=== PATIENT | male | born 1980 | race Caucasian/White ===

== ENCOUNTER 2018-11-05 13:50 | Emergency (ER) | payer MEDICAID ==
[~2018-11-05] VITALS: Ht 177.8 cm; Wt 112.3 kg
[2018-11-05 14:02] VITALS: BP 130/90
[2018-11-05] MEDS ORDERED: KETOROLAC 30 MG/1 ML ONE (14:44)
--- NOTE | 2018-11-05 14:54 | NUR ---
MEDICATED FOR BILATERAL FOOT PAIN
[2018-11-05] MEDS ORDERED: KETOROLAC 30 MG/1 ML IM ONE (15:00)
== END 2018-11-05 15:55 | disposition home or self-care (01) ==
LOC: ED 15:30
DX: M10.072 Idiopathic gout, left ankle and foot (principal); M10.071 Idiopathic gout, right ankle and foot; K08.89 Other specified disorders of teeth and supporting structures
CPT/HCPCS: 96372; 99283; J1885; J7512

== ENCOUNTER 2018-11-09 07:31 | Emergency (ER) | payer MEDICAID ==
[~2018-11-09] VITALS: Ht 177.8 cm; Wt 113.2 kg
[2018-11-09 07:34] VITALS: BP 123/84
[2018-11-09] MEDS ORDERED: KETOROLAC 30 MG/1 ML IM ONE (08:00)
[2018-11-09] MEDS ORDERED: COLCHICINE 0.6 MG CAPSULE PO ONE (08:00)
[2018-11-09] MEDS ORDERED: KETOROLAC 60 MG/2 ML ONE (08:17)
[2018-11-09] MEDS ORDERED: COLCHICINE 0.6 MG CAPSULE ONE (08:18)
== END 2018-11-09 09:02 | disposition home or self-care (01) ==
LOC: ED 08:01
DX: M10.071 Idiopathic gout, right ankle and foot (principal); R05 Cough
CPT/HCPCS: 96372; 99283; J1885

== ENCOUNTER 2018-12-11 15:29 | Emergency (ER) | payer MEDICAID ==
[~2018-12-11] VITALS: Ht 177.8 cm; Wt 110.0 kg
[2018-12-11 17:02] VITALS: BP 125/86
== END 2018-12-11 17:14 | disposition home or self-care (01) ==
LOC: ED 16:37
DX: F10.229 Alcohol dependence with intoxication, unspecified (principal); Y90.0 Blood alcohol level of less than 20 mg/100 ml; F17.200 Nicotine dependence, unspecified, uncomplicated
CPT/HCPCS: 36415; 80053; 80307; 85025; 93005; 96365; 96375; 96376; 99284; J2060; J3411; J7030

== ENCOUNTER 2019-05-23 08:23 | Emergency (ER) | payer MEDICAID, OTHER ==
[~2019-05-23] VITALS: Ht 177.8 cm; Wt 109.3 kg
[2019-05-23 08:30] VITALS: BP 139/87
--- NOTE | 2019-05-23 08:39 | NUR ---
PT C/O RIGHT FOOT PAIN FOR A FEW DAYS THAT HE BELIEVES IS A GOUT FLAIR UP. ADDITIONALLY EXPERIENCING DENTAL PAIN.
[2019-05-23] MEDS ORDERED: KETOROLAC 30 MG/1 ML ONE (08:56)
[2019-05-23] MEDS ORDERED: HYDROcodone/APAP 5/325 TABLET ONE (08:56)
[2019-05-23] MEDS ORDERED: HYDROcodone/APAP 5/325 TABLET PO ONE (09:00)
[2019-05-23] MEDS ORDERED: KETOROLAC 30 MG/1 ML IM ONE (09:00)
--- NOTE | 2019-05-23 09:20 | NUR ---
RPT TO KRYSTLE DYER
--- NOTE | 2019-05-23 09:41 | NUR ---
Patient/Caregiver given discharge instructions and they have confirmed that they understand the instructions. Patient ambulatory with steady gait.
== END 2019-05-23 10:07 ==
LOC: ED 10:01
DX: M25.571 Pain in right ankle and joints of right foot (principal); K08.89 Other specified disorders of teeth and supporting structures; M19.90 Unspecified osteoarthritis, unspecified site; M10.9 Gout, unspecified
CPT/HCPCS: 96372; 99283; J1885

== ENCOUNTER 2019-06-24 18:14 | Emergency (ER) | payer MEDICAID ==
[~2019-06-24] VITALS: Ht 177.8 cm; Wt 107.8 kg
[2019-06-24 18:53] VITALS: BP 130/83
--- NOTE | 2019-06-24 19:24 | NUR ---
PT AMBULATORY FROM LOBBY TO ROOM 10
[2019-06-24] MEDS ORDERED: COLCHICINE 0.6 MG CAPSULE PO ONE (19:30)
[2019-06-24] MEDS ORDERED: KETOROLAC 30 MG/1 ML IM ONE (19:30)
[2019-06-24] MEDS ORDERED: KETOROLAC 30 MG/1 ML ONE (19:39)
[2019-06-24] MEDS ORDERED: COLCHICINE 0.6 MG CAPSULE ONE (19:40)
== END 2019-06-24 19:54 ==
LOC: ED 19:45
DX: M1A.0710 Idiopathic chronic gout, right ankle and foot, without tophus (tophi) (principal)
CPT/HCPCS: 96372; 99283; J1885

== ENCOUNTER 2019-07-09 06:15 | Emergency (ER) | payer MEDICAID ==
[~2019-07-09] VITALS: Ht 177.8 cm; Wt 107.8 kg
--- NOTE | 2019-07-09 06:30 | NUR ---
C/O GOUT FLARE UP ON LEFT FOOT AND LEFT KNEE. PLACED VITALS SIGNS MONITORS, SAFETY PRECAUTIONS IMPLEMENTED, CALL LIGHT WITHIN REACH. ERP AT BEDSIDE FOR EVAL.
[2019-07-09] MEDS ORDERED: KETOROLAC 30 MG/1 ML ONE (06:57)
[2019-07-09] MEDS ORDERED: KETOROLAC 30 MG/1 ML IM ONE (07:00)
--- NOTE | 2019-07-09 07:03 | NUR ---
BEDSIDE REPORT GIVEN TO SOL DYER.
--- NOTE | 2019-07-09 07:05 | NUR ---
RECEIVED REPORT FROM GOMEZ FUENTES. PT SITTING IN BED WATCHING TV, RESPIRATIONS EVEN AND UNLABORED, NO SIGNS OF DISTRESS.
[2019-07-09 07:37] VITALS: BP 113/81
== END 2019-07-09 07:39 | disposition home or self-care (01) ==
LOC: ED 06:46
DX: M17.12 Unilateral primary osteoarthritis, left knee (principal); M19.072 Primary osteoarthritis, left ankle and foot
CPT/HCPCS: 96372; 99283; J1885

== ENCOUNTER 2019-07-15 09:07 | Emergency (ER) | payer MEDICAID ==
[~2019-07-15] VITALS: Ht 177.8 cm; Wt 111.4 kg
[2019-07-15 09:13] VITALS: BP 141/105
[2019-07-15] MEDS ORDERED: COLCHICINE 0.6 MG CAPSULE PO ONE ×2 (10:30→11:30)
[2019-07-15] MEDS ORDERED: HYDROcodone/APAP 5/325 TABLET PO ONE (10:30)
[2019-07-15] MEDS ORDERED: ONDANSETRON ODT 8 MG PO ONE (10:30)
[2019-07-15] MEDS ORDERED: HYDROcodone/APAP 5/325 TABLET ONE (10:46)
[2019-07-15] MEDS ORDERED: ONDANSETRON ODT 4 MG ONE (10:46)
[2019-07-15] MEDS ORDERED: COLCHICINE 0.6 MG CAPSULE ONE ×2 (10:48→11:12)
[2019-07-15] MEDS ORDERED: ONDANSETRON ODT 8 MG ONE (10:52)
--- NOTE | 2019-07-15 10:54 | NUR ---
TASK RN NOTE: PT MEDICATED PER EMAR, TOLERATED WELL. AWAITING FURTHER ORDERS AT THIS TIME.
== END 2019-07-15 11:47 | disposition home or self-care (01) ==
LOC: ED 11:40
DX: M13.0 Polyarthritis, unspecified (principal); M10.9 Gout, unspecified
CPT/HCPCS: 99284; Q0162

== ENCOUNTER 2019-07-29 16:20 | Emergency (ER) | payer MEDICAID ==
[~2019-07-29] VITALS: Ht 180.3 cm; Wt 112.1 kg
[2019-07-29 16:23] VITALS: BP 132/90
--- NOTE | 2019-07-29 16:49 | NUR ---
BREAK NURSE: PT C/O GOUT FLARE UP IN LATERAL RIGHT FOOT. HX GOUT. PT HAS NEW PRESCRIPTION FOR ALLOPURINOL, BUT CANNOT START WITH ACTIVE FLARE UP.
[2019-07-29] MEDS ORDERED: KETOROLAC 60 MG/2 ML ONE (16:58)
[2019-07-29] MEDS ORDERED: KETOROLAC 30 MG/1 ML IM ONE (17:00)
--- NOTE | 2019-07-29 17:02 | NUR ---
MEDS ADMIN PER JUN.
== END 2019-07-29 18:06 | disposition home or self-care (01) ==
LOC: ED 16:47
DX: M79.671 Pain in right foot (principal); M10.9 Gout, unspecified; F17.200 Nicotine dependence, unspecified, uncomplicated
CPT/HCPCS: 96372; 99283; J1885

== ENCOUNTER 2019-09-12 10:02 | Inpatient (IN) | payer MEDICAID ==
[~2019-09-12] VITALS: Ht 180.3 cm; Wt 106.1 kg
--- NOTE | 2019-09-12 10:17 | NUR ---
PT BIB [facility] C/O "FLU LIKE SYMTPOMS" X A FEW DAYS AND ETOH WITHDRAWAL. PT C/O COUGHING AND A "SLIGHT SORE THROAT". LAST DRINK APPROX 3 HOURS AGO. PT STATES "I'M DON'T KNOW HOW MUCH I DRINK". PT SLIGHTLY SHAKY, BUT STEADY UPON AMBULATION TO RESTROOM. PT DENIES HX OF SZ'S W/ETOH WITHDRAWAL IN THE PAST. PT AO X 4. SKIN PWD. RESP EVEN AND UNLABORED. FS 107.
[2019-09-12] MEDS ORDERED: SODIUM CHLORIDE 0.9% 1,000ML IVBOLUS ONE (10:30)
[2019-09-12] MEDS ORDERED: LORazepam 2 MG/ML, 1ML IVPush ONE ×3 (10:30→12:30)
[2019-09-12] MEDS ORDERED: MAALOX/HYOSCYAMINE/LIDOCAINE 45 ML BTL PO ONE (10:30)
[2019-09-12] MEDS ORDERED: FAMOTIDINE 20 MG/2 ML IV ONE (10:30)
[2019-09-12] MEDS ORDERED: ONDANSETRON 2MG/ML, 2ML IVPush ONE (10:30)
[2019-09-12] MEDS ORDERED: FAMOTIDINE 20 MG/2 ML ONE (10:32)
[2019-09-12] MEDS ORDERED: LORazepam 2 MG/ML, 1ML ONE ×5 (10:32→15:21)
[2019-09-12] MEDS ORDERED: MAALOX/HYOSCYAMINE/LIDOCAINE 45 ML BTL ONE (10:32)
[2019-09-12] MEDS ORDERED: ONDANSETRON 2MG/ML, 2ML ONE (10:32)
--- NOTE | 2019-09-12 11:06 | NUR ---
PT MEDICATED ORDERED FOR N/V AND WITHDRAWAL. PT AO X 4. SKIN PWD. RESP EVEN AND UNLABORED. NO COUGH NOTED BY RN AT THIS TIME. US AT BEDSIDE. PT AWARE WE ARE WAITING FOR LAB/IMAGING RESULTS. PT ON CONT BP AND O2 MONITORS. CALL LIGHT WITHIN REACH. WILL CONT TO MONITOR PT.
[2019-09-12 11:08] LABS: MICROSCOPIC NOT IND
[2019-09-12 11:33] LABS: INTERNATIONAL NORMALIZED RATIO 1.04 (0.93-1.1)
[2019-09-12 11:34] LABS: ALBUMIN 3.2 g/dL (3.4-5.0); ANION GAP 14 mmol/L (5-15); BASOPHILS # (AUTO) 0.02 x10^3/uL (0-0.1); BASOPHILS % (AUTO) 1 % (0-1); CALCIUM 8.3 mg/dL (8.5-10.1); CHLORIDE 96 mmol/L (98-107); EOSINOPHILS % (AUTO) 0 % (1-7); LYMPHOCYTES # (AUTO) 0.39 x10^3/uL (1-3.4); LYMPHOCYTES % (AUTO) 12 % (22-44); MD NO; MEAN CORPUSCULAR HEMOGLOBIN 33.1 pg (27.5-34.5); MEAN CORPUSCULAR HGB CONC 34.6 g/dL (33.2-36.2); MEAN CORPUSCULAR VOLUME 95.7 fL (81-97); MEAN PLATELET VOLUME 7.7 fL (7.4-10.4); MONOCYTES # (AUTO) 0.25 x10^3/uL (0.2-0.8); MONOCYTES % (AUTO) 8 % (2-9); NEUTROPHILS # (AUTO) 2.56 x10^3/uL (1.8-6.8); NEUTROPHILS % (AUTO) 79 % (42-75); PLATELET COUNT 107 x10^3/uL (130-400); RED BLOOD COUNT 4.44 x10^6/uL (4.38-5.82); RED CELL DISTRIBUTION WIDTH 16.7 % (9.4-14.8)
[2019-09-12 11:39] LABS: CREATININE 0.78 mg/dL (0.7-1.3)
[2019-09-12 11:40] LABS: ALANINE AMINOTRANSFERASE 210 U/L (12-78); ALKALINE PHOSPHATASE 188 U/L (45-117); BILIRUBIN,TOTAL 1.9 mg/dL (0.2-1.0)
[2019-09-12] MEDS ORDERED: THIAMINE 100MG TABLET ONE (11:42)
--- NOTE | 2019-09-12 11:55 | NUR ---
PT REMEDICATED FOR WITHDRAWAL ORDERED. PT CONT TO HAVE SLIGHT TREMOR IN HANDS. PT STEADY UPON AMBULATION TO RESTROOM AND BACK TO [facility]. PT AO X 4. SKIN PWD. RESP EVEN AND UNLABORED. PT REQUESTING FOOD.
[2019-09-12] MEDS ORDERED: THIAMINE 100MG TABLET PO ONE (12:00)
--- NOTE | 2019-09-12 12:40 | NUR ---
PT CURRENTLY RESTING ON [facility] [employer]. PT HAS IMPROVED BUT SLIGHT TREMOR. PT WAS REMEDICATED ORDERED. PT AO X 4. SKIN PWD. RESP EVEN AND UNLABORED. PT STEADY UPON [facility]ULATION TO [facility]. PT PROVIDED WITH BROTH AND CRACKERS WITH OKAY BY JOSEY ARANGO. PT REQUESTING MORE FOOD. WILL ADVANCE DIET TOLERATED PER JOSEY ARANGO. PT ON CONT BP, CARDIAC AND O2 MONITORS. CALL LIGHT WITHIN REACH.
[2019-09-12] MEDS ORDERED: LABETALOL 5MG/ML, 20ML IVPush PRN (13:00)
[2019-09-12] MEDS ORDERED: CHLORDIAZEPOXIDE 25 MG CAPSULE PO PRN (13:00)
[2019-09-12] MEDS ORDERED: hydrALAzine 20 MG/ML, 1ML IVPush PRN (13:00)
[2019-09-12] MEDS ORDERED: PROMETHAZINE 25 MG/ML, 1ML IM PRN (13:00)
[2019-09-12] MEDS ORDERED: LORazepam 2 MG/ML, 1ML IV PRN ×3 (13:00)
[2019-09-12] MEDS ORDERED: LORazepam 1MG TABLET PO PRN (13:00)
[2019-09-12] MEDS ORDERED: NICOTINE 7 MG/24 HR PATCH.TD24 ONE (13:13)
[2019-09-12] MEDS ORDERED: HEPARIN 5,000 UNITS/ML, 1ML ONE (13:13)
[2019-09-12] MEDS: SODIUM CHLORIDE 0.9% 1,000 ML IV SCH ×2 (13:21→20:24)
[2019-09-12] MEDS: HEPARIN 5,000 UNITS/ML, 1ML SQ SCH ×2 (13:22→20:20)
[2019-09-12] MEDS: NICOTINE 7 MG/24 HR PATCH.TD24 TD SCH (13:22)
--- NOTE | 2019-09-12 13:27 | NUR ---
PT TOLERATED PO BROTH AND SALTINES. PT DENIES NAUSEA AT THIS TIME. PT PROVIDED WITH MEAL TRAY. PT IS LESS TREMULOUS AT THIS TIME. STILL SLIGHT TREMOR NOTED IF PT HOLDS OUT HAND. PT AO X 4. SKIN PWD. RESP EVEN AND UNLABORED. CALL LIGHT WITHIN REACH. WILL CONT TO MONITOR PT.
--- NOTE | 2019-09-12 14:43 | NUR ---
Report to GOMEZ Aguilera on Med/Tele. RN concerned about EKG's. Disucssed with JOSEY Marcum previously, per JOSEY Marcum pt has had no ischemic changes between this and previous EKG's. Pt currently resting on gurney. NAD noted. Pt on cont BP, Cardiac and O2 monitors. Call light within reach.
[2019-09-12] MEDS: LORazepam 2 MG/ML, 1ML IV PRN ×2 (15:23→16:14)
[2019-09-12 15:47] VITALS: BP 122/77
[2019-09-12] MEDS: MULTIVITAMIN 1 TABLET PO SCH (16:13)
[2019-09-12] MEDS: FOLIC ACID 1 MG TABLET PO SCH (16:13)
[2019-09-12 18:34] LABS: ANION GAP 10 mmol/L (5-15); CALCIUM 8.1 mg/dL (8.5-10.1); CHLORIDE 103 mmol/L (98-107); CREATININE 1.35 mg/dL (0.7-1.3)
[2019-09-12 18:39] VITALS: BP 131/89
[2019-09-12] MEDS: ACETAMINOPHEN 325 MG TABLET PO PRN (19:05)
[2019-09-12 20:05] VITALS: BP 117/71
[2019-09-12] MEDS: THIAMINE 100MG TABLET PO SCH (20:20)
[2019-09-12 21:10] LABS: ANION GAP 10 mmol/L (5-15); CALCIUM 8.2 mg/dL (8.5-10.1); CHLORIDE 103 mmol/L (98-107)
[2019-09-12 21:11] LABS: CREATININE 1.29 mg/dL (0.7-1.3)
[2019-09-13 01:11] VITALS: BP 111/72
[2019-09-13] MEDS: LORazepam 1MG TABLET PO PRN ×3 (01:12→19:35)
[2019-09-13] MEDS: SODIUM CHLORIDE 0.9% 1,000 ML IV SCH (04:39)
[2019-09-13] MEDS: HEPARIN 5,000 UNITS/ML, 1ML SQ SCH ×3 (04:59→21:01)
[2019-09-13 05:20] LABS: ALBUMIN 2.7 g/dL (3.4-5.0); ANION GAP 7 mmol/L (5-15); CHLORIDE 107 mmol/L (98-107)
[2019-09-13 05:25] LABS: ALANINE AMINOTRANSFERASE 181 U/L (12-78); ALKALINE PHOSPHATASE 153 U/L (45-117); BILIRUBIN,TOTAL 3.7 mg/dL (0.2-1.0); CREATININE 0.93 mg/dL (0.7-1.3); TOTAL PROTEIN 5.8 g/dL (6.4-8.2)
[2019-09-13 05:57] VITALS: BP 136/80
[2019-09-13] MEDS: ACETAMINOPHEN 325 MG TABLET PO PRN (06:08)
[2019-09-13 06:10] LABS: BASOPHILS # (AUTO) 0.01 x10^3/uL (0-0.1); BASOPHILS % (AUTO) 1 % (0-1); EOSINOPHILS # (AUTO) 0.01 x10^3/uL (0-0.4); EOSINOPHILS % (AUTO) 0 % (1-7); LYMPHOCYTES # (AUTO) 0.47 x10^3/uL (1-3.4); LYMPHOCYTES % (AUTO) 19 % (22-44); MD SCAN; MEAN CORPUSCULAR HEMOGLOBIN 31.8 pg (27.5-34.5); MEAN CORPUSCULAR HGB CONC 33.5 g/dL (33.2-36.2); MEAN PLATELET VOLUME 8.4 fL (7.4-10.4); MONOCYTES # (AUTO) 0.23 x10^3/uL (0.2-0.8); MONOCYTES % (AUTO) 10 % (2-9); NEUTROPHILS % (AUTO) 70 % (42-75); PLATELET COUNT 71 x10^3/uL (130-400); RED BLOOD COUNT 3.94 x10^6/uL (4.38-5.82)
[2019-09-13 06:37] VITALS: BP 138/83
[2019-09-13] MEDS: MULTIVITAMIN 1 TABLET PO SCH (08:23)
[2019-09-13] MEDS: FOLIC ACID 1 MG TABLET PO SCH (08:23)
[2019-09-13] MEDS: THIAMINE 100MG TABLET PO SCH ×2 (08:23→21:01)
[2019-09-13] MEDS: NEUTRA PHOS K 250 MG TABLET PO SCH ×3 (09:35→21:01)
[2019-09-13] MEDS: LORazepam 0.5MG TABLET PO PRN (09:50)
[2019-09-13 10:16] LABS: CHLORIDE 108 mmol/L (98-107)
[2019-09-13 10:21] LABS: ANION GAP 8 mmol/L (5-15); CALCIUM 8.7 mg/dL (8.5-10.1); CREATININE 0.93 mg/dL (0.7-1.3)
[2019-09-13 10:32] LABS: TROPONIN I < 0.015 ng/mL (0.000-0.045)
[2019-09-13 13:43] VITALS: BP 124/84
[2019-09-13] MEDS: NICOTINE 7 MG/24 HR PATCH.TD24 TD SCH (13:59)
[2019-09-13] MEDS: POTASSIUM CHLORIDE 20 MEQ TAB.ER.PRT PO SCH (17:08)
[2019-09-13 18:37] VITALS: BP 136/89
[2019-09-13 18:45] LABS: TROPONIN I < 0.015 ng/mL (0.000-0.045)
[2019-09-13 21:18] LABS: TROPONIN I < 0.015 ng/mL (0.000-0.045)
[2019-09-14 00:49] VITALS: BP 107/73
[2019-09-14] MEDS: HEPARIN 5,000 UNITS/ML, 1ML SQ SCH ×3 (04:58→21:03)
[2019-09-14 05:50] LABS: ALANINE AMINOTRANSFERASE 161 U/L (12-78); ALBUMIN 2.7 g/dL (3.4-5.0); ANION GAP 6 mmol/L (5-15); CALCIUM 8.2 mg/dL (8.5-10.1); CHLORIDE 109 mmol/L (98-107); CREATININE 0.74 mg/dL (0.7-1.3)
[2019-09-14 05:51] LABS: MEAN CORPUSCULAR HEMOGLOBIN 32.6 pg (27.5-34.5); MEAN CORPUSCULAR VOLUME 95.9 fL (81-97); MEAN PLATELET VOLUME 9.2 fL (7.4-10.4); PLATELET COUNT 70 x10^3/uL (130-400); RED BLOOD COUNT 3.84 x10^6/uL (4.38-5.82); RED CELL DISTRIBUTION WIDTH 17.4 % (9.4-14.8)
[2019-09-14 05:52] LABS: ALKALINE PHOSPHATASE 153 U/L (45-117); TOTAL PROTEIN 5.9 g/dL (6.4-8.2)
[2019-09-14 06:22] LABS: BASOPHILS # (AUTO) 0.02 x10^3/uL (0-0.1); BASOPHILS % (AUTO) 1 % (0-1); EOSINOPHILS # (AUTO) 0.04 x10^3/uL (0-0.4); EOSINOPHILS % (AUTO) 1 % (1-7); LYMPHOCYTES # (AUTO) 0.62 x10^3/uL (1-3.4); LYMPHOCYTES % (AUTO) 21 % (22-44); MONOCYTES # (AUTO) 0.28 x10^3/uL (0.2-0.8); MONOCYTES % (AUTO) 10 % (2-9); NEUTROPHILS # (AUTO) 1.98 x10^3/uL (1.8-6.8); NEUTROPHILS % (AUTO) 67 % (42-75)
[2019-09-14 06:23] LABS: MD SCAN
[2019-09-14 07:53] VITALS: BP 115/80
[2019-09-14] MEDS: LORazepam 0.5MG TABLET PO PRN ×2 (07:59→18:21)
[2019-09-14] MEDS: POTASSIUM CHLORIDE 20 MEQ TAB.ER.PRT PO SCH ×4 (07:59→21:02)
[2019-09-14] MEDS: NEUTRA PHOS K 250 MG TABLET PO SCH ×3 (07:59→21:02)
[2019-09-14] MEDS: THIAMINE 100MG TABLET PO SCH ×2 (07:59→21:02)
[2019-09-14] MEDS: FOLIC ACID 1 MG TABLET PO SCH (07:59)
[2019-09-14] MEDS: MULTIVITAMIN 1 TABLET PO SCH (07:59)
[2019-09-14] MEDS: NICOTINE 7 MG/24 HR PATCH.TD24 TD SCH (13:55)
[2019-09-14] MEDS: ONDANSETRON 2MG/ML, 2ML IVPush PRN (14:39)
[2019-09-14 14:57] VITALS: BP 121/87
[2019-09-14] MEDS: PANTOPRAZOLE 40MG TABLET PO SCH (15:51)
[2019-09-14 19:00] VITALS: BP 111/82
[2019-09-14] MEDS: LORazepam 1MG TABLET PO PRN (21:02)
[2019-09-15 00:01] VITALS: BP 118/81
[2019-09-15] MEDS: LORazepam 1MG TABLET PO PRN ×4 (00:12→20:47)
[2019-09-15] MEDS: PANTOPRAZOLE 40MG TABLET PO SCH ×2 (05:46→15:52)
[2019-09-15] MEDS: HEPARIN 5,000 UNITS/ML, 1ML SQ SCH ×3 (05:46→20:46)
[2019-09-15 06:05] LABS: MEAN CORPUSCULAR HEMOGLOBIN 33.1 pg (27.5-34.5); MEAN CORPUSCULAR HGB CONC 34.4 g/dL (33.2-36.2); MEAN CORPUSCULAR VOLUME 96.4 fL (81-97); MEAN PLATELET VOLUME 9.4 fL (7.4-10.4); PLATELET COUNT 70 x10^3/uL (130-400); RED BLOOD COUNT 3.67 x10^6/uL (4.38-5.82); RED CELL DISTRIBUTION WIDTH 17.5 % (9.4-14.8)
[2019-09-15 06:12] LABS: ALANINE AMINOTRANSFERASE 147 U/L (12-78); ALBUMIN 2.6 g/dL (3.4-5.0); ANION GAP 6 mmol/L (5-15); CALCIUM 8.5 mg/dL (8.5-10.1); CHLORIDE 108 mmol/L (98-107); CREATININE 0.74 mg/dL (0.7-1.3)
[2019-09-15 06:14] LABS: ALKALINE PHOSPHATASE 157 U/L (45-117); BILIRUBIN,TOTAL 3.8 mg/dL (0.2-1.0)
[2019-09-15 06:43] LABS: BASOPHILS # (AUTO) 0.02 x10^3/uL (0-0.1); BASOPHILS % (AUTO) 1 % (0-1); EOSINOPHILS # (AUTO) 0.05 x10^3/uL (0-0.4); EOSINOPHILS % (AUTO) 2 % (1-7); LYMPHOCYTES # (AUTO) 0.81 x10^3/uL (1-3.4); LYMPHOCYTES % (AUTO) 28 % (22-44); MD SCAN; MONOCYTES % (AUTO) 10 % (2-9); NEUTROPHILS # (AUTO) 1.76 x10^3/uL (1.8-6.8); NEUTROPHILS % (AUTO) 60 % (42-75)
[2019-09-15] MEDS: THIAMINE 100MG TABLET PO SCH ×2 (08:12→20:47)
[2019-09-15] MEDS: POTASSIUM CHLORIDE 20 MEQ TAB.ER.PRT PO SCH ×3 (08:12→20:47)
[2019-09-15] MEDS: NEUTRA PHOS K 250 MG TABLET PO SCH ×3 (08:12→20:47)
[2019-09-15] MEDS: MULTIVITAMIN 1 TABLET PO SCH (08:12)
[2019-09-15] MEDS: LORazepam 0.5MG TABLET PO PRN (08:12)
[2019-09-15] MEDS: FOLIC ACID 1 MG TABLET PO SCH (09:19)
[2019-09-15 10:01] VITALS: BP 110/74
[2019-09-15] MEDS: ONDANSETRON 2MG/ML, 2ML IVPush PRN (12:42)
[2019-09-15] MEDS: NICOTINE 7 MG/24 HR PATCH.TD24 TD SCH (13:19)
[2019-09-15 13:56] VITALS: BP 110/75
[2019-09-15] MEDS ORDERED: LORazepam 2 MG/ML, 1ML IVPush PRN (18:00)
[2019-09-15] MEDS ORDERED: TRAZODONE 50MG TABLET PO PRN (18:00)
[2019-09-15 19:02] VITALS: BP 113/78
[2019-09-16 00:45] VITALS: BP 112/82
[2019-09-16] MEDS ORDERED: ONDANSETRON ODT 4 MG ONE (04:35)
[2019-09-16] MEDS: ONDANSETRON 2MG/ML, 2ML IVPush PRN (04:38)
[2019-09-16] MEDS: HEPARIN 5,000 UNITS/ML, 1ML SQ SCH ×3 (05:09→22:00)
[2019-09-16 05:58] LABS: CALCIUM 8.9 mg/dL (8.5-10.1); CHLORIDE 110 mmol/L (98-107)
[2019-09-16 06:04] LABS: ALANINE AMINOTRANSFERASE 166 U/L (12-78); ALBUMIN 2.8 g/dL (3.4-5.0); ALKALINE PHOSPHATASE 155 U/L (45-117); ANION GAP 8 mmol/L (5-15); BILIRUBIN,TOTAL 2.5 mg/dL (0.2-1.0); CREATININE 0.74 mg/dL (0.7-1.3); TOTAL PROTEIN 6.4 g/dL (6.4-8.2)
[2019-09-16] MEDS: PANTOPRAZOLE 40MG TABLET PO SCH (06:20)
[2019-09-16 06:21] LABS: MEAN CORPUSCULAR HEMOGLOBIN 32.7 pg (27.5-34.5); MEAN CORPUSCULAR HGB CONC 33.7 g/dL (33.2-36.2); MEAN CORPUSCULAR VOLUME 97.2 fL (81-97); PLATELET COUNT 89 x10^3/uL (130-400); RED BLOOD COUNT 3.99 x10^6/uL (4.38-5.82); RED CELL DISTRIBUTION WIDTH 18.1 % (9.4-14.8)
[2019-09-16 06:51] VITALS: BP 114/83
[2019-09-16 07:37] LABS: BASOPHILS # (AUTO) 0.03 x10^3/uL (0-0.1); BASOPHILS % (AUTO) 1 % (0-1); EOSINOPHILS # (AUTO) 0.07 x10^3/uL (0-0.4); EOSINOPHILS % (AUTO) 2 % (1-7); LYMPHOCYTES # (AUTO) 1.08 x10^3/uL (1-3.4); LYMPHOCYTES % (AUTO) 33 % (22-44); MD SCAN; MONOCYTES # (AUTO) 0.37 x10^3/uL (0.2-0.8); MONOCYTES % (AUTO) 11 % (2-9); NEUTROPHILS # (AUTO) 1.76 x10^3/uL (1.8-6.8); NEUTROPHILS % (AUTO) 53 % (42-75)
[2019-09-16] MEDS: FOLIC ACID 1 MG TABLET PO SCH (08:35)
[2019-09-16] MEDS: MULTIVITAMIN 1 TABLET PO SCH (08:35)
[2019-09-16] MEDS: THIAMINE 100MG TABLET PO SCH ×2 (08:35→21:59)
[2019-09-16] MEDS: NEUTRA PHOS K 250 MG TABLET PO SCH ×3 (08:40→21:59)
[2019-09-16] MEDS: LORazepam 1MG TABLET PO PRN ×3 (12:58→22:02)
[2019-09-16] MEDS: NICOTINE 7 MG/24 HR PATCH.TD24 TD SCH (13:49)
[2019-09-16 14:59] VITALS: BP 110/77
[2019-09-16 21:50] VITALS: BP 110/76
[2019-09-17 00:39] VITALS: BP 119/83
[2019-09-17] MEDS: LORazepam 1MG TABLET PO PRN ×6 (02:58→21:07)
[2019-09-17] MEDS: HEPARIN 5,000 UNITS/ML, 1ML SQ SCH (05:46)
[2019-09-17 06:27] VITALS: BP 119/81
[2019-09-17 06:45] LABS: ALANINE AMINOTRANSFERASE 158 U/L (12-78); ALBUMIN 2.8 g/dL (3.4-5.0); ANION GAP 6 mmol/L (5-15); CALCIUM 8.5 mg/dL (8.5-10.1); CHLORIDE 110 mmol/L (98-107)
[2019-09-17 06:48] LABS: ALKALINE PHOSPHATASE 143 U/L (45-117); BILIRUBIN,TOTAL 1.9 mg/dL (0.2-1.0); TOTAL PROTEIN 6.3 g/dL (6.4-8.2)
[2019-09-17] MEDS ORDERED: ONDANSETRON 4 MG TABLET PO ONE (07:30)
[2019-09-17] MEDS ORDERED: ONDANSETRON 4 MG TABLET ONE (07:32)
[2019-09-17 07:41] LABS: MEAN CORPUSCULAR HEMOGLOBIN 33.1 pg (27.5-34.5); MEAN CORPUSCULAR HGB CONC 33.5 g/dL (33.2-36.2); MEAN CORPUSCULAR VOLUME 98.7 fL (81-97); MEAN PLATELET VOLUME 9.4 fL (7.4-10.4); PLATELET COUNT 114 x10^3/uL (130-400); RED BLOOD COUNT 4.08 x10^6/uL (4.38-5.82); RED CELL DISTRIBUTION WIDTH 18.4 % (9.4-14.8)
[2019-09-17] MEDS: NEUTRA PHOS K 250 MG TABLET PO SCH ×3 (07:46→20:19)
[2019-09-17] MEDS: MULTIVITAMIN 1 TABLET PO SCH (07:46)
[2019-09-17] MEDS: FOLIC ACID 1 MG TABLET PO SCH (07:47)
[2019-09-17] MEDS: PANTOPRAZOLE 40MG TABLET PO SCH (07:47)
[2019-09-17] MEDS: THIAMINE 100MG TABLET PO SCH ×2 (07:47→20:19)
[2019-09-17] MEDS: ENOXAPARIN 40 MG/0.4 ML SQ SCH (08:19)
[2019-09-17 08:25] LABS: BASOPHILS # (AUTO) 0.01 x10^3/uL (0-0.1); BASOPHILS % (AUTO) 0 % (0-1); EOSINOPHILS # (AUTO) 0.07 x10^3/uL (0-0.4); EOSINOPHILS % (AUTO) 2 % (1-7); LYMPHOCYTES # (AUTO) 0.81 x10^3/uL (1-3.4); LYMPHOCYTES % (AUTO) 24 % (22-44); MD SCAN; MONOCYTES # (AUTO) 0.48 x10^3/uL (0.2-0.8); MONOCYTES % (AUTO) 14 % (2-9); NEUTROPHILS # (AUTO) 1.98 x10^3/uL (1.8-6.8); NEUTROPHILS % (AUTO) 59 % (42-75)
[2019-09-17] MEDS ORDERED: KETOROLAC 30 MG/1 ML IVPush PRN (10:30)
[2019-09-17] MEDS: COLCHICINE 0.6 MG CAPSULE PO SCH ×2 (11:03→20:19)
[2019-09-17] MEDS: KETOROLAC 30 MG/1 ML IM PRN (11:03)
[2019-09-17] MEDS: NICOTINE 7 MG/24 HR PATCH.TD24 TD SCH (13:05)
[2019-09-17 13:32] VITALS: BP 108/76
[2019-09-17 20:00] VITALS: BP 115/78
[2019-09-18 01:59] VITALS: BP 129/87
[2019-09-18 05:54] LABS: ALBUMIN 2.8 g/dL (3.4-5.0); ANION GAP 6 mmol/L (5-15); CALCIUM 8.8 mg/dL (8.5-10.1); CHLORIDE 111 mmol/L (98-107)
[2019-09-18 05:59] LABS: ALANINE AMINOTRANSFERASE 147 U/L (12-78); ALKALINE PHOSPHATASE 132 U/L (45-117); BILIRUBIN,TOTAL 1.2 mg/dL (0.2-1.0); CREATININE 0.88 mg/dL (0.7-1.3); TOTAL PROTEIN 6.2 g/dL (6.4-8.2)
[2019-09-18] MEDS: PANTOPRAZOLE 40MG TABLET PO SCH (06:44)
[2019-09-18] MEDS: KETOROLAC 30 MG/1 ML IM PRN (07:50)
[2019-09-18] MEDS: LORazepam 0.5MG TABLET PO PRN ×3 (07:50→21:05)
[2019-09-18 08:19] VITALS: BP 106/71
[2019-09-18] MEDS: ENOXAPARIN 40 MG/0.4 ML SQ SCH (09:00)
[2019-09-18] MEDS: FOLIC ACID 1 MG TABLET PO SCH (09:30)
[2019-09-18] MEDS: COLCHICINE 0.6 MG CAPSULE PO SCH ×2 (09:30→21:05)
[2019-09-18] MEDS: MULTIVITAMIN 1 TABLET PO SCH (09:30)
[2019-09-18] MEDS: NEUTRA PHOS K 250 MG TABLET PO SCH ×3 (09:30→21:05)
[2019-09-18] MEDS: THIAMINE 100MG TABLET PO SCH ×2 (09:30→21:05)
[2019-09-18] MEDS: NICOTINE 7 MG/24 HR PATCH.TD24 TD SCH (12:27)
[2019-09-18 14:40] VITALS: BP 121/86
[2019-09-18] MEDS: LORazepam 1MG TABLET PO PRN (16:45)
[2019-09-18 19:08] VITALS: BP 128/87
[2019-09-19 00:25] VITALS: BP 138/90
[2019-09-19 05:11] LABS: ALANINE AMINOTRANSFERASE 148 U/L (12-78); ALBUMIN 2.7 g/dL (3.4-5.0); ANION GAP 9 mmol/L (5-15); CALCIUM 8.8 mg/dL (8.5-10.1); CHLORIDE 111 mmol/L (98-107); CREATININE 0.88 mg/dL (0.7-1.3)
[2019-09-19 05:14] LABS: ALKALINE PHOSPHATASE 123 U/L (45-117); TOTAL PROTEIN 6.2 g/dL (6.4-8.2)
[2019-09-19] MEDS: PANTOPRAZOLE 40MG TABLET PO SCH (06:08)
[2019-09-19] MEDS: LORazepam 0.5MG TABLET PO PRN (06:15)
[2019-09-19 06:42] VITALS: BP 134/85
[2019-09-19] MEDS: ENOXAPARIN 40 MG/0.4 ML SQ SCH ×2 (08:16→08:19)
[2019-09-19] MEDS: ONDANSETRON 2MG/ML, 2ML IVPush PRN (08:16)
[2019-09-19] MEDS: THIAMINE 100MG TABLET PO SCH (08:17)
[2019-09-19] MEDS: COLCHICINE 0.6 MG CAPSULE PO SCH (08:17)
[2019-09-19] MEDS: FOLIC ACID 1 MG TABLET PO SCH (08:17)
[2019-09-19] MEDS: MULTIVITAMIN 1 TABLET PO SCH (08:17)
[2019-09-19] MEDS: NEUTRA PHOS K 250 MG TABLET PO SCH (08:17)
[2019-09-19] MEDS ORDERED: ONDANSETRON ODT 4 MG PO PRN (08:30)
[2019-09-19] MEDS ORDERED: ONDANSETRON 4 MG TABLET PO SCH (09:00)
[2019-09-19] MEDS ORDERED: IBUP-1902 PO (09:59)
[2019-09-19] MEDS ORDERED: THIA100T67 PO (09:59)
[2019-09-19] MEDS ORDERED: FOLI-17 PO (09:59)
[2019-09-19] MEDS ORDERED: PANT40TA5 PO (09:59)
[2019-09-19] MEDS ORDERED: MULT1TAB60 PO (09:59)
[2019-09-19] MEDS ORDERED: ONDA-89 PO (09:59)
[2019-09-19] MEDS ORDERED: COLC0.6C3 PO (09:59)
== END 2019-09-19 11:12 | disposition home or self-care (01) | DRG 433 ==
LOC: ED 10:13 → EDIP 12:35 → 4WST 15:32
PROVIDERS: ADMIT Internal Medicine; ATTEND Internal Medicine
DX: K70.10 Alcoholic hepatitis without ascites (principal); F10.231 Alcohol dependence with withdrawal delirium; E87.1 Hypo-osmolality and hyponatremia; E87.2 Acidosis; M10.9 Gout, unspecified; D69.59 Other secondary thrombocytopenia; E83.39 Other disorders of phosphorus metabolism; E86.1 Hypovolemia; E87.6 Hypokalemia; F17.210 Nicotine dependence, cigarettes, uncomplicated
CPT/HCPCS: 36415; 96361; 96374; 96375; 99285; J3490; 71045; 74181; 76700; 80048; 80053; 80307; 81003; 83690; 83735; 83930; 83935; 84100; 84484; 85025; 85610; 93005; G0378; J1644; J1650; J1885; J2405; Q0162; J2060; J7030

== ENCOUNTER 2019-09-20 09:30 | Emergency (ER) | payer MEDICAID ==
[~2019-09-20 09:30] MED LIST: COLC0.6C3 PO; FOLI-17 PO; IBUP-1902 PO; MULT1TAB60 PO; ONDA-89 PO; PANT40TA5 PO; THIA100T67 PO
== END 2019-09-20 09:57 | disposition left against medical advice (07) ==
LOC: ED 09:46
DX: R52 Pain, unspecified (principal); Z53.21 Procedure and treatment not carried out due to patient leaving prior to being seen by health care provider

== ENCOUNTER 2019-10-14 01:37 | Emergency (ER) | payer MEDICAID ==
[~2019-10-14] VITALS: Ht 177.8 cm; Wt 113.0 kg
[2019-10-14 01:38] VITALS: BP 146/88
[2019-10-14] MEDS ORDERED: COLCHICINE 0.6 MG CAPSULE PO ONE (02:00)
[2019-10-14] MEDS ORDERED: KETOROLAC 30 MG/1 ML ONE (02:00)
[2019-10-14] MEDS ORDERED: KETOROLAC 30 MG/1 ML IM ONE (02:00)
[2019-10-14] MEDS ORDERED: COLCHICINE 0.6 MG CAPSULE ONE (02:01)
--- NOTE | 2019-10-14 02:30 | NUR ---
cab voucher provided.
--- NOTE | 2019-10-14 02:30 | NUR ---
Break RN: patient discharged with prescriptions and instruction. verbalized understanding.
== END 2019-10-14 02:34 | disposition home or self-care (01) ==
LOC: ED 02:07
DX: M10.071 Idiopathic gout, right ankle and foot (principal); M13.171 Monoarthritis, not elsewhere classified, right ankle and foot
CPT/HCPCS: 96372; 99283; J1885; J7512

== ENCOUNTER 2019-11-26 17:46 | Emergency (ER) | payer MEDICAID ==
[~2019-11-26] VITALS: Ht 180.3 cm; Wt 107.6 kg
[~2019-11-26 17:46] MED LIST changes: +MULT-449 PO; -MULT1TAB60 PO
[2019-11-26] MEDS ORDERED: MORPHINE SULFATE 4 MG/ML, 1ML ONE (18:29)
[2019-11-26] MEDS ORDERED: COLCHICINE 0.6 MG CAPSULE ONE ×2 (18:30→19:29)
[2019-11-26] MEDS ORDERED: SODIUM CHLORIDE FLUSH 10ML SYR IVF ONE (18:30)
[2019-11-26] MEDS ORDERED: SODIUM CHLORIDE 0.9% 1,000ML IVBOLUS ONE (18:30)
[2019-11-26] MEDS ORDERED: COLCHICINE 0.6 MG CAPSULE PO ONE (18:30)
[2019-11-26] MEDS ORDERED: MORPHINE SULFATE 4 MG/ML, 1ML IVPush PRN (18:30)
[2019-11-26 18:42] LABS: BASOPHILS # (AUTO) 0.04 x10^3/uL (0-0.1); BASOPHILS % (AUTO) 0 % (0-1); EOSINOPHILS # (AUTO) 0.14 x10^3/uL (0-0.4); EOSINOPHILS % (AUTO) 2 % (1-7); HCT (SEDRATE) 37.2 % (39.2-51.8); LYMPHOCYTES # (AUTO) 1.22 x10^3/uL (1-3.4); LYMPHOCYTES % (AUTO) 14 % (22-44); MD NO; MEAN CORPUSCULAR HEMOGLOBIN 32.6 pg (27.5-34.5); MEAN CORPUSCULAR HGB CONC 33.3 g/dL (33.2-36.2); MEAN CORPUSCULAR VOLUME 97.9 fL (81-97); MEAN PLATELET VOLUME 7.6 fL (7.4-10.4); MONOCYTES # (AUTO) 0.33 x10^3/uL (0.2-0.8); MONOCYTES % (AUTO) 4 % (2-9); NEUTROPHILS # (AUTO) 6.77 x10^3/uL (1.8-6.8); NEUTROPHILS % (AUTO) 80 % (42-75); PLATELET COUNT 319 x10^3/uL (130-400); RED BLOOD COUNT 3.76 x10^6/uL (4.38-5.82); RED CELL DISTRIBUTION WIDTH 16.7 % (9.4-14.8)
--- NOTE | 2019-11-26 18:50 | NUR ---
PT HAS HOSPITAL GOWN. IV STARTED. ORDERED FLUIDS AND MEDS GIVEN. PT ON VITALS MONITORS. WILL CONTINUE TO MONITOR.
[2019-11-26 18:52] LABS: ANION GAP 9 mmol/L (5-15); CALCIUM 8.2 mg/dL (8.5-10.1); CHLORIDE 109 mmol/L (98-107); CREATININE 0.83 mg/dL (0.7-1.3)
--- NOTE | 2019-11-26 18:54 | NUR ---
REPORT TO MI DYER
--- NOTE | 2019-11-26 19:48 | NUR ---
pt dced at this time, education discussed on new prescriptions, pt verbalized understanding, provided with taxi voucher and wheelchaired to registration desk
[2019-11-26 19:49] VITALS: BP 118/56
[2019-11-27] MEDS ORDERED: COLCHICINE 0.6 MG CAPSULE PO SCH (09:00)
== END 2019-11-26 20:46 | disposition home or self-care (01) ==
LOC: ED 20:40
DX: M13.161 Monoarthritis, not elsewhere classified, right knee (principal); R00.0 Tachycardia, unspecified
CPT/HCPCS: 36415; 80048; 82040; 84550; 85025; 85651; 86140; 93005; 96374; 99284; J2270; J7030; 96361

== ENCOUNTER 2019-12-11 17:20 | Emergency (ER) | payer MEDICAID ==
[~2019-12-11] VITALS: Ht 180.3 cm; Wt 109.4 kg
[2019-12-11 17:55] VITALS: BP 150/99
[2019-12-11] MEDS ORDERED: KETOROLAC 30 MG/1 ML ONE (19:38)
[2019-12-11] MEDS ORDERED: COLCHICINE 0.6 MG CAPSULE ONE (19:53)
[2019-12-11] MEDS ORDERED: KETOROLAC 30 MG/1 ML IM ONE (20:00)
[2019-12-11] MEDS ORDERED: COLCHICINE 0.6 MG CAPSULE PO ONE (20:00)
== END 2019-12-11 20:14 | disposition home or self-care (01) ==
LOC: ED 19:45
DX: M13.172 Monoarthritis, not elsewhere classified, left ankle and foot (principal); F17.210 Nicotine dependence, cigarettes, uncomplicated
CPT/HCPCS: 96372; 99283; 99406; J1885

== ENCOUNTER 2020-01-26 06:33 | Emergency (ER) | payer MEDICAID ==
[~2020-01-26] VITALS: Ht 177.8 cm; Wt 103.0 kg
[~2020-01-26 06:33] MED LIST changes: -PANT40TA5 PO; +PANT40TA6 PO
--- NOTE | 2020-01-26 06:53 | NUR ---
REPORT TO OS RN
[2020-01-26] MEDS ORDERED: KETOROLAC 30 MG/1 ML IM ONE (07:00)
[2020-01-26] MEDS ORDERED: HYDROcodone/APAP 5/325 TABLET PO ONE (07:00)
[2020-01-26] MEDS ORDERED: HYDROcodone/APAP 5/325 TABLET ONE (07:10)
[2020-01-26] MEDS ORDERED: KETOROLAC 30 MG/1 ML ONE (07:10)
[2020-01-26 08:28] VITALS: BP 129/78
== END 2020-01-26 08:30 | disposition home or self-care (01) ==
LOC: ED 08:24
DX: M10.072 Idiopathic gout, left ankle and foot (principal); M10.061 Idiopathic gout, right knee
CPT/HCPCS: 73564; 96372; 99283; J1885; J7512

== ENCOUNTER 2020-02-12 00:57 | Emergency (ER) | payer MEDICAID ==
[~2020-02-12] VITALS: Ht 180.3 cm; Wt 109.2 kg
[2020-02-12] MEDS ORDERED: COLCHICINE 0.6 MG CAPSULE PO ONE (01:30)
[2020-02-12] MEDS ORDERED: KETOROLAC 30 MG/1 ML IM ONE (01:30)
[2020-02-12] MEDS ORDERED: KETOROLAC 30 MG/1 ML ONE (01:39)
[2020-02-12] MEDS ORDERED: COLCHICINE 0.6 MG CAPSULE ONE (01:40)
[2020-02-12 01:52] VITALS: BP 131/96
[2020-02-12] MEDS ORDERED: ALLO300T PO (01:53)
--- NOTE | 2020-02-12 01:54 | NUR ---
39 YO M CC OF LEFT FOOT PAIN FROM GOUT. PT HAS HISTORY OF THIS. PT IN NO APPERANT DISTRESS, RESTING ON GURNEY. MEDICATED PER EMAR. PT ASKING FOR NORCO, STATES HE GETS PRESCRIPTION EVERY TIME HE COMES IN FOR THIS.
== END 2020-02-12 02:17 | disposition home or self-care (01) ==
LOC: ED 02:00
DX: M1A.0720 Idiopathic chronic gout, left ankle and foot, without tophus (tophi) (principal); M25.572 Pain in left ankle and joints of left foot; M19.90 Unspecified osteoarthritis, unspecified site
CPT/HCPCS: 96372; 99283; J1885; J7512

== ENCOUNTER 2020-04-14 20:50 | Inpatient (IN) | payer MEDICAID ==
[~2020-04-14] VITALS: Ht 177.8 cm; Wt 106.8 kg
[~2020-04-14 20:50] MED LIST changes: +ALLO300T PO
--- NOTE | 2020-04-14 21:10 | NUR ---
No room available at this time. plasterer spray gun aware.
--- NOTE | 2020-04-14 21:36 | NUR ---
pt to room from lobby
[2020-04-14] MEDS ORDERED: ONDANSETRON 2MG/ML, 2ML IVPush ONE (22:00)
[2020-04-14] MEDS ORDERED: LORazepam 2 MG/ML, 1ML IVPush ONE (22:00)
[2020-04-14] MEDS ORDERED: PROMETHAZINE 25 MG/ML, 1ML IM ONE (22:00)
[2020-04-14] MEDS ORDERED: SODIUM CHLORIDE FLUSH 10ML SYR IVF ONE (22:00)
[2020-04-14] MEDS ORDERED: SODIUM CHLORIDE 0.9% 1,000ML IVBOLUS ONE (22:00)
[2020-04-14] MEDS ORDERED: THIAMINE 100 MG/ML, 2ML IM ONE (22:00)
[2020-04-14] MEDS ORDERED: MORPHINE SULFATE 4 MG/ML, 1ML IVPush ONE (22:00)
[2020-04-14] MEDS ORDERED: PROMETHAZINE 25 MG/ML, 1ML ONE (22:18)
[2020-04-14] MEDS ORDERED: LORazepam 2 MG/ML, 1ML ONE (22:19)
[2020-04-14] MEDS ORDERED: THIAMINE 100 MG/ML, 2ML ONE (22:19)
[2020-04-14] MEDS ORDERED: ONDANSETRON 2MG/ML, 2ML ONE (22:19)
[2020-04-14] MEDS ORDERED: MORPHINE SULFATE 4 MG/ML, 1ML ONE (22:19)
--- NOTE | 2020-04-14 22:43 | NUR ---
PT RESTING IN BED WITH VISABLE AGITATION AND HAND SHAKING. PT STATED HE NORMALY DRINKS 12 TALL BEERS A DAY AND HAS NOT HAD A DRINK IN OVER 12 HRS. PT STATED HE WANTED TO DETOX AND THAT HIS RIGHT FLANK HURTS WITH N/V
[2020-04-14 23:22] LABS: MEAN CORPUSCULAR HGB CONC 34.3 g/dL (33.2-36.2); MEAN PLATELET VOLUME 10.2 fL (7.4-10.4); PLATELET COUNT 110 x10^3/uL (130-400); RED CELL DISTRIBUTION WIDTH 16.3 % (9.4-14.8)
[2020-04-14 23:33] LABS: ALBUMIN 2.3 g/dL (3.4-5.0); ANION GAP 12 mmol/L (5-15); CALCIUM 7.9 mg/dL (8.5-10.1); CHLORIDE 97 mmol/L (98-107)
[2020-04-14 23:36] LABS: ALANINE AMINOTRANSFERASE 427 U/L (12-78); ALKALINE PHOSPHATASE 337 U/L (45-117); BILIRUBIN,TOTAL 9.2 mg/dL (0.2-1.0); CREATININE 0.75 mg/dL (0.7-1.3); TOTAL PROTEIN 5.6 g/dL (6.4-8.2)
[2020-04-15] MEDS ORDERED: MAGNESIUM SULFATE 1 GM, THIAMINE 100 MG, FOLIC ACID 1 MG, MVI ADULT 10 ML in SODIUM CHL... IV ONE
[2020-04-15 00:01] LABS: MD YES
[2020-04-15 00:04] LABS: <PLATELET ESTIMATE> DECREASED; ANISOCYTOSIS 1+; BASOS#(MANUAL) 0.04 x10^3/uL (0-0.1); BASOS% (MANUAL) 1 % (0-1); EOS#(MANUAL) 0.04 x10^3/uL (0.0-0.4); EOS% (MANUAL) 1 % (1-7); LYMPH#(MANUAL) 0.68 x10^3/uL (1-3.4); LYMPHS% (MANUAL) 19 % (22-44); MONOS#(MANUAL) 0.22 x10^3/uL (0.3-2.7); MONOS% (MANUAL) 6 % (2-9); SEG#(MANUAL) 2.63 x10^3/uL (1.8-6.8); SEGS% (MANUAL) 73 % (42-75)
[2020-04-15] MEDS: LORazepam 2 MG/ML, 1ML IVPush PRN ×2 (00:04→03:38)
[2020-04-15 00:05] LABS: LARGE PLATELETS 1+
[2020-04-15 00:09] LABS: INTERNATIONAL NORMALIZED RATIO 1.07 (0.93-1.1); PROTHROMBIN TIME 11.3 Seconds (9.6-11.5)
--- NOTE | 2020-04-15 00:13 | NUR ---
PT RESTING IN BED, PT ON MONITOR WITH PT VSS. PT MEDICATED PER MAR. PT DENIED ANY WANTS OR NEEDS.
--- NOTE | 2020-04-15 01:29 | NUR ---
PT RESTING IN BED, PT ON MONITOR WITH PT VSS. PT MEDICATED PER MAR. PT DENIED ANY WANTS OR NEEDS.
--- NOTE | 2020-04-15 03:14 | NUR ---
PT RESTING IN BED, PT ON MONITOR WITH PT VSS. PT MEDICATED PER MAR. PT DENIED ANY WANTS OR NEEDS.
[2020-04-15] MEDS: DIAZEPAM 10 MG TABLET PO SCH ×4 (05:30→23:48)
[2020-04-15] MEDS ORDERED: FOLIC ACID 1 MG TABLET PO ONE (05:30)
[2020-04-15] MEDS ORDERED: THIAMINE 200 MG in DEXTROSE 5% 50 ML IVPB ONE (05:30)
[2020-04-15] MEDS ORDERED: LORazepam 2 MG/ML, 1ML IV PRN (05:30)
[2020-04-15] MEDS ORDERED: PROMETHAZINE 25 MG/ML, 1ML IM PRN (05:30)
[2020-04-15] MEDS: SODIUM CHLORIDE 0.9% 1,000 ML IV SCH ×2 (05:30→17:53)
[2020-04-15] MEDS ORDERED: DIAZEPAM 5 MG TABLET ONE ×4 (06:25→23:45)
[2020-04-15 06:29] LABS: ANION GAP 8 mmol/L (5-15); CALCIUM 8.1 mg/dL (8.5-10.1); CHLORIDE 99 mmol/L (98-107); CREATININE 0.91 mg/dL (0.7-1.3)
--- NOTE | 2020-04-15 07:00 | NUR ---
SBAR RPT REC'D AND ASSUMED PT CARE. IVF INFUSING W/O DIFFICULTY, VSS, CALL LIGHT W/I REACH
[2020-04-15 07:02] LABS: AMPHETAMINE SCREEN, URINE Negative (Negative); BARBITURATE SCREEN, URINE Negative (Negative); BENZODIAZEPINE SCREEN, URINE Negative (Negative); CANNABINOID SCREEN, URINE Negative (Negative); COCAINE SCREEN, URINE Negative (Negative); METHADONE SCREEN, URINE Negative (Negative); OPIATE SCREEN, URINE Positive (Negative)
--- NOTE | 2020-04-15 07:28 | NUR ---
Report received from [facility]
--- NOTE | 2020-04-15 07:57 | NUR ---
PT ASSESSMENT NOTED. PT OOB TO TRANSFER TO HOSPITAL BED. INCREASED TREMMORS WITH ACTIVITY BUT OTHERWISE TOLLERATED WELL. PT C/O RUQ ABD PAIN. US WAS COMPLETED BUT RESULTS NOT YET POSTED. CALL LIGHT W/I REACH, VSS
[2020-04-15 08:27] VITALS: BP 120/72
--- NOTE | 2020-04-15 08:35 | NUR ---
MEDICATED PER [facility] PROT[facility]. ADMIT COMPLETED. ASSESSMENT COMPLETED AND DOCUMENTED IN INPATIENT CHARTING. PT CONTINUES TO STATE HE HAS RIGHT FLANK PAIN AND DIARRHEA. IN HOSPITAL BED. BED ALARM ON AND WORKING. CALL LIGHT WITHIN REACH.
[2020-04-15] MEDS ORDERED: LORazepam 2 MG/ML, 1ML ONE ×2 (08:39)
[2020-04-15] MEDS: LORazepam 2 MG/ML, 1ML IV PRN ×2 (08:42→17:47)
[2020-04-15] MEDS ORDERED: THIAMINE 100MG TABLET PO ONE (09:00)
[2020-04-15] MEDS: MULTIVITAMINS/MINERALS TABLET PO SCH (10:06)
--- NOTE | 2020-04-15 10:20 | NUR ---
BREAKFAST TRAY ORDERED. PT STATES HE FEELS BETTER NOW. DENIES ADDITIONAL NEEDS AT THIS TIME.
[2020-04-15 13:41] VITALS: BP 125/76
--- NOTE | 2020-04-15 13:51 | NUR ---
break rn- pt up tp bathroom
--- NOTE | 2020-04-15 16:36 | NUR ---
Report given to Loren, all questions answered. Updated pt on admit status. All personal belongings within reach.
[2020-04-15 21:07] VITALS: BP 119/77
[2020-04-16 02:01] VITALS: BP 122/70
[2020-04-16] MEDS: LORazepam 2 MG/ML, 1ML IV PRN ×6 (04:11→22:37)
[2020-04-16] MEDS ORDERED: DIAZEPAM 5 MG TABLET PO SCH (05:30)
[2020-04-16] MEDS: SODIUM CHLORIDE 0.9% 1,000 ML IV SCH ×2 (05:58→15:45)
[2020-04-16 06:07] LABS: ALBUMIN 2.2 g/dL (3.4-5.0); ANION GAP 7 mmol/L (5-15); CALCIUM 8.3 mg/dL (8.5-10.1); CHLORIDE 104 mmol/L (98-107)
[2020-04-16 06:11] LABS: ALANINE AMINOTRANSFERASE 324 U/L (12-78); ALKALINE PHOSPHATASE 343 U/L (45-117); BILIRUBIN,TOTAL 10.6 mg/dL (0.2-1.0); CREATININE 0.76 mg/dL (0.7-1.3); TOTAL PROTEIN 5.4 g/dL (6.4-8.2)
[2020-04-16] MEDS ORDERED: FAMOTIDINE 40 MG TABLET ONE ×3 (08:16→22:27)
[2020-04-16] MEDS: MULTIVITAMINS/MINERALS TABLET PO SCH (08:20)
[2020-04-16] MEDS: FAMOTIDINE 20 MG TABLET PO SCH ×2 (08:20→21:00)
[2020-04-16] MEDS: THIAMINE 100MG TABLET PO SCH (08:20)
[2020-04-16] MEDS ORDERED: ACETAMINOPHEN 325 MG TABLET PO PRN (08:30)
[2020-04-16] MEDS: KETOROLAC 30 MG/1 ML IM PRN ×3 (08:31→22:37)
[2020-04-16 08:46] VITALS: BP 111/76
[2020-04-16] MEDS ORDERED: THIAMINE 100 MG in DEXTROSE 5% 50 ML IVPB SCH (09:00)
[2020-04-16] MEDS ORDERED: LORazepam 1MG TABLET ONE (11:52)
[2020-04-16 13:56] VITALS: BP 111/78
[2020-04-16] MEDS ORDERED: LORazepam 0.5MG TABLET ONE (15:17)
[2020-04-16 20:00] VITALS: BP 107/73
[2020-04-17] MEDS: SODIUM CHLORIDE 0.9% 1,000 ML IV SCH (00:52)
[2020-04-17 02:33] VITALS: BP 112/75
[2020-04-17 05:13] LABS: MEAN CORPUSCULAR HEMOGLOBIN 32.8 pg (27.5-34.5); MEAN CORPUSCULAR HGB CONC 33.7 g/dL (33.2-36.2); PLATELET COUNT 133 x10^3/uL (130-400); RED BLOOD COUNT 3.31 x10^6/uL (4.38-5.82); RED CELL DISTRIBUTION WIDTH 17.4 % (9.4-14.8)
[2020-04-17 05:24] LABS: ALANINE AMINOTRANSFERASE 229 U/L (12-78); ALBUMIN 1.9 g/dL (3.4-5.0); ANION GAP 6 mmol/L (5-15); CHLORIDE 111 mmol/L (98-107); CREATININE 0.75 mg/dL (0.7-1.3)
[2020-04-17 05:26] LABS: ALKALINE PHOSPHATASE 294 U/L (45-117); BILIRUBIN,TOTAL 7.7 mg/dL (0.2-1.0); TOTAL PROTEIN 4.9 g/dL (6.4-8.2)
[2020-04-17 05:54] LABS: MD YES
[2020-04-17 05:57] LABS: ANISOCYTOSIS 1+; EOS#(MANUAL) 0.11 x10^3/uL (0.0-0.4); EOS% (MANUAL) 3 % (1-7); LYMPH#(MANUAL) 1.07 x10^3/uL (1-3.4); LYMPHS% (MANUAL) 29 % (22-44); MONOS% (MANUAL) 8 % (2-9); SEG#(MANUAL) 2.22 x10^3/uL (1.8-6.8); SEGS% (MANUAL) 60 % (42-75); TARGET CELLS 1+
[2020-04-17 05:58] LABS: <PLATELET ESTIMATE> ADEQUATE; <PLT MORPHOLOGY> NORMAL PLT MORPH; POLYCHROMASIA 1+
[2020-04-17 08:00] VITALS: BP 118/80
[2020-04-17] MEDS: THIAMINE 100MG TABLET PO SCH (10:13)
[2020-04-17] MEDS: POTASSIUM CHLORIDE 20 MEQ TAB.ER.PRT PO SCH (10:13)
[2020-04-17] MEDS: MULTIVITAMINS/MINERALS TABLET PO SCH (10:13)
[2020-04-17] MEDS: LIDODERM 5% PATCH TD SCH (10:14)
[2020-04-17] MEDS: HYDROcodone/APAP 5/325 TABLET PO PRN ×2 (11:03→21:37)
[2020-04-17] MEDS: FAMOTIDINE 20 MG TABLET PO SCH ×2 (11:03→19:20)
[2020-04-17] MEDS ORDERED: NICOTINE 14MG/24 HR PATCH.TD24 TD ONE (13:30)
[2020-04-17] MEDS ORDERED: NICOTINE 14MG/24 HR PATCH.TD24 ONE (13:37)
[2020-04-17] MEDS: LORazepam 2 MG/ML, 1ML IV PRN ×3 (13:39→22:31)
[2020-04-17 14:00] VITALS: BP 107/72
[2020-04-17 19:04] VITALS: BP 121/86
[2020-04-17] MEDS ORDERED: FAMOTIDINE 40 MG TABLET ONE (19:13)
[2020-04-17] MEDS: KETOROLAC 30 MG/1 ML IM PRN (19:19)
[2020-04-18 01:24] VITALS: BP 111/78
[2020-04-18] MEDS: LORazepam 2 MG/ML, 1ML IV PRN ×6 (02:16→20:11)
[2020-04-18 05:41] LABS: MEAN CORPUSCULAR HEMOGLOBIN 32.5 pg (27.5-34.5); MEAN CORPUSCULAR HGB CONC 33.7 g/dL (33.2-36.2); MEAN PLATELET VOLUME 9.8 fL (7.4-10.4); PLATELET COUNT 187 x10^3/uL (130-400); RED BLOOD COUNT 3.57 x10^6/uL (4.38-5.82); RED CELL DISTRIBUTION WIDTH 17.9 % (9.4-14.8)
[2020-04-18 05:47] LABS: ALBUMIN 2.1 g/dL (3.4-5.0); ANION GAP 5 mmol/L (5-15); CALCIUM 8.8 mg/dL (8.5-10.1); CHLORIDE 111 mmol/L (98-107)
[2020-04-18 05:54] LABS: ALANINE AMINOTRANSFERASE 201 U/L (12-78); ALKALINE PHOSPHATASE 319 U/L (45-117); BILIRUBIN,TOTAL 6.8 mg/dL (0.2-1.0); TOTAL PROTEIN 5.6 g/dL (6.4-8.2)
[2020-04-18 07:13] LABS: MD YES
[2020-04-18 07:14] LABS: BAND#(MANUAL) 0.04 x10^3/uL; BANDS%(MANUAL) 1 % (0-7); LYMPH#(MANUAL) 0.66 x10^3/uL (1-3.4); LYMPHS% (MANUAL) 16 % (22-44); METAMYELOCYTES# (MANUAL) 0.04 x10^3/uL (0-0); METAMYELOCYTES% (MANUAL) 1 % (0-1); MONOS#(MANUAL) 0.29 x10^3/uL (0.3-2.7); MONOS% (MANUAL) 7 % (2-9); SEG#(MANUAL) 3.08 x10^3/uL (1.8-6.8); SEGS% (MANUAL) 75 % (42-75)
[2020-04-18 07:15] LABS: ANISOCYTOSIS 1+; POLYCHROMASIA 1+
[2020-04-18 07:17] LABS: <PLATELET ESTIMATE> ADEQUATE; <PLT MORPHOLOGY> NORMAL PLT MORPH; TARGET CELLS 1+
[2020-04-18 07:25] VITALS: BP 135/92
[2020-04-18] MEDS ORDERED: FAMOTIDINE 40 MG TABLET ONE ×2 (08:20)
[2020-04-18] MEDS: MULTIVITAMINS/MINERALS TABLET PO SCH (08:23)
[2020-04-18] MEDS: POTASSIUM CHLORIDE 20 MEQ TAB.ER.PRT PO SCH (08:23)
[2020-04-18] MEDS: THIAMINE 100MG TABLET PO SCH (08:24)
[2020-04-18] MEDS: LIDODERM 5% PATCH TD SCH (08:24)
[2020-04-18] MEDS: FAMOTIDINE 20 MG TABLET PO SCH ×2 (08:24→20:11)
[2020-04-18] MEDS ORDERED: NICOTINE 21 MG/24 HR PATCH.TD24 TD SCH (10:30)
[2020-04-18] MEDS ORDERED: morphine SULFATE 10 MG/ML, 1ML IVPush PRN (11:00)
[2020-04-18] MEDS: HYDROcodone/APAP 5/325 TABLET PO PRN ×2 (11:06→12:19)
[2020-04-18 12:43] VITALS: BP 133/92
[2020-04-18] MEDS ORDERED: OMNIPAQUE 350 MG/ML, 100ML BOTTLE ONE (13:59)
[2020-04-18] MEDS ORDERED: LACTULOSE 20 GM/30 ML UDC PO SCH (16:00)
[2020-04-18 20:04] VITALS: BP 114/75
[2020-04-18] MEDS: KETOROLAC 30 MG/1 ML IM PRN (20:11)
[2020-04-19 02:00] VITALS: BP 136/88
[2020-04-19 05:58] LABS: MEAN CORPUSCULAR HGB CONC 34.3 g/dL (33.2-36.2); MEAN PLATELET VOLUME 9.5 fL (7.4-10.4); PLATELET COUNT 181 x10^3/uL (130-400); RED BLOOD COUNT 3.47 x10^6/uL (4.38-5.82)
[2020-04-19 06:00] LABS: ANION GAP 3 mmol/L (5-15); CALCIUM 8.2 mg/dL (8.5-10.1); CHLORIDE 110 mmol/L (98-107)
[2020-04-19] MEDS ORDERED: LORazepam 1MG TABLET PO PRN ×4 (06:00)
[2020-04-19] MEDS ORDERED: LORazepam 0.5MG TABLET PO PRN (06:00)
[2020-04-19 06:05] LABS: ALANINE AMINOTRANSFERASE 164 U/L (12-78); ALKALINE PHOSPHATASE 263 U/L (45-117); BILIRUBIN,TOTAL 4.4 mg/dL (0.2-1.0); CREATININE 0.69 mg/dL (0.7-1.3); TOTAL PROTEIN 5.2 g/dL (6.4-8.2)
[2020-04-19 07:32] VITALS: BP 128/88
[2020-04-19 08:01] LABS: MD YES
[2020-04-19 08:04] LABS: ANISOCYTOSIS 1+; BAND#(MANUAL) 0.11 x10^3/uL; BANDS%(MANUAL) 3 % (0-7); EOS#(MANUAL) 0.23 x10^3/uL (0.0-0.4); EOS% (MANUAL) 6 % (1-7); LYMPH#(MANUAL) 1.25 x10^3/uL (1-3.4); LYMPHS% (MANUAL) 33 % (22-44); METAMYELOCYTES# (MANUAL) 0.04 x10^3/uL (0-0); METAMYELOCYTES% (MANUAL) 1 % (0-1); MONOS#(MANUAL) 0.49 x10^3/uL (0.3-2.7); MONOS% (MANUAL) 13 % (2-9); POLYCHROMASIA 1+; SEG#(MANUAL) 1.67 x10^3/uL (1.8-6.8); SEGS% (MANUAL) 44 % (42-75)
[2020-04-19 08:05] LABS: <PLATELET ESTIMATE> ADEQUATE; <PLT MORPHOLOGY> NORMAL PLT MORPH; PMNS WITH VACUOLES 1+; TARGET CELLS 1+
[2020-04-19] MEDS: THIAMINE 100MG TABLET PO SCH (08:46)
[2020-04-19] MEDS: MULTIVITAMINS/MINERALS TABLET PO SCH (08:46)
[2020-04-19] MEDS: POTASSIUM CHLORIDE 20 MEQ TAB.ER.PRT PO SCH (08:46)
[2020-04-19] MEDS: FAMOTIDINE 20 MG TABLET PO SCH (08:46)
[2020-04-19] MEDS: LIDODERM 5% PATCH TD SCH (08:47)
== END 2020-04-19 09:40 | disposition home or self-care (01) | DRG 433 ==
LOC: ED 22:50 → EDIP 04-15 01:04 → 5SO 04-15 17:18 → DCLOUNGE 04-19 09:37
PROVIDERS: ADMIT Family Medicine; ATTEND Hospitalist
DX: K70.10 Alcoholic hepatitis without ascites (principal); E87.1 Hypo-osmolality and hyponatremia; F10.239 Alcohol dependence with withdrawal, unspecified; D64.9 Anemia, unspecified; D69.59 Other secondary thrombocytopenia; E66.9 Obesity, unspecified; F17.200 Nicotine dependence, unspecified, uncomplicated; K59.00 Constipation, unspecified; K70.30 Alcoholic cirrhosis of liver without ascites; K76.0 Fatty (change of) liver, not elsewhere classified; K21.9 Gastro-esophageal reflux disease without esophagitis; M10.9 Gout, unspecified; M19.90 Unspecified osteoarthritis, unspecified site; Y90.9 Presence of alcohol in blood, level not specified; Z68.33 Body mass index [BMI] 33.0-33.9, adult
CPT/HCPCS: 36415; 70450; 71045; 74177; 76700; 80048; 80053; 80074; 80307; 80320; 82140; 83690; 83735; 83930; 84100; 85025; 85610; 85730; 93005; G0378; J1885; J2405; J2550; J3411; J3475; Q9967; G0480; J2060; J2270; J7030

== ENCOUNTER 2020-04-22 02:23 | Emergency (ER) | payer MEDICAID ==
[~2020-04-22] VITALS: Ht 177.8 cm; Wt 95.0 kg
[2020-04-22] MEDS ORDERED: SODIUM CHLORIDE 0.9% 1,000ML IVBOLUS ONE (02:30)
[2020-04-22] MEDS ORDERED: SODIUM CHLORIDE FLUSH 10ML SYR IVF ONE (02:30)
[2020-04-22] MEDS ORDERED: LORazepam 2 MG/ML, 1ML IVPush ONE (02:30)
[2020-04-22] MEDS ORDERED: ONDANSETRON 2MG/ML, 2ML IVPush ONE (02:30)
[2020-04-22] MEDS ORDERED: ONDANSETRON 2MG/ML, 2ML ONE (02:55)
[2020-04-22] MEDS ORDERED: LORazepam 2 MG/ML, 1ML ONE (02:56)
[2020-04-22 03:05] LABS: BASOPHILS % (AUTO) 1 % (0-1); EOSINOPHILS % (AUTO) 1 % (1-7); LYMPHOCYTES % (AUTO) 15 % (22-44); MD NO; MEAN CORPUSCULAR HEMOGLOBIN 33.2 pg (27.5-34.5); MEAN CORPUSCULAR HGB CONC 34.2 g/dL (33.2-36.2); MEAN PLATELET VOLUME 7.9 fL (7.4-10.4); MONOCYTES % (AUTO) 24 % (2-9); NEUTROPHILS % (AUTO) 60 % (42-75); PLATELET COUNT 260 x10^3/uL (130-400); RED BLOOD COUNT 3.91 x10^6/uL (4.38-5.82); RED CELL DISTRIBUTION WIDTH 20.5 % (9.4-14.8)
[2020-04-22 03:10] LABS: ALANINE AMINOTRANSFERASE 160 U/L (12-78); ALBUMIN 2.5 g/dL (3.4-5.0); ANION GAP 5 mmol/L (5-15); CALCIUM 8.6 mg/dL (8.5-10.1); CHLORIDE 104 mmol/L (98-107)
[2020-04-22 03:13] LABS: ALKALINE PHOSPHATASE 363 U/L (45-117); BILIRUBIN,TOTAL 4.2 mg/dL (0.2-1.0); CREATININE 0.89 mg/dL (0.7-1.3); TOTAL PROTEIN 6.7 g/dL (6.4-8.2)
--- NOTE | 2020-04-22 03:16 | NUR ---
bib ems. c/o n/v/d x 1 day. chronic alcoholic. last drink approx 2 hours ago. also with c/o infection to the left hand following recent IV for previous visit. also c/o pain to the right arm without hx tauma, painful with movement. pt attached to all monitors. piv placed and fluid bolus infusing. medicated for nausea and discomfort per emar.
[2020-04-22 04:31] VITALS: BP 117/70
[2020-04-22] MEDS ORDERED: CEPHALEXIN 500 MG CAPSULE ONE (04:39)
[2020-04-22] MEDS ORDERED: CEPHALEXIN 500 MG CAPSULE PO ONE (05:00)
== END 2020-04-22 05:09 | disposition home or self-care (01) ==
LOC: ED 03:46
DX: L03.114 Cellulitis of left upper limb (principal); R19.7 Diarrhea, unspecified; R11.2 Nausea with vomiting, unspecified; F10.220 Alcohol dependence with intoxication, uncomplicated; Y90.0 Blood alcohol level of less than 20 mg/100 ml; F17.290 Nicotine dependence, other tobacco product, uncomplicated; M10.9 Gout, unspecified
CPT/HCPCS: 36415; 80053; 83690; 85025; 96374; 96375; 99284; J2060; J2405; J7030

== ENCOUNTER 2020-06-26 17:36 | Emergency (ER) | payer MEDICAID ==
[~2020-06-26] VITALS: Ht 180.3 cm; Wt 111.3 kg
[~2020-06-26 17:36] MED LIST changes: -FOLI-17 PO; +FOLI1TAB32 PO
[2020-06-26 17:41] VITALS: BP 131/95
[2020-06-26] MEDS ORDERED: IBUP-1902 PO (18:22)
--- NOTE | 2020-06-26 18:22 | NUR ---
PT IS A 39M COMPLAINING OF RIGHT SHOULDER PAIN SINCE MARCH. HE DENIES TRAUMA BUT WAS SLEEPING ON AN AIR MATTRESS THAT HAD A HOLE IN IT SO HES BEEN SLEEPING ON THE FLOOR WHICH HE BELIEVES HURT HIS SHOULDER. CARDIAC, BP, SPO2 MONITORS IN PLACE. CALL LIGHT WITHIN REACH.
[2020-06-26] MEDS ORDERED: KETOROLAC 30 MG/1 ML ONE (18:25)
[2020-06-26] MEDS ORDERED: LIDODERM 5% PATCH TD ONE ×2 (18:26→18:30)
[2020-06-26] MEDS ORDERED: METHOCARBAMOL 750 MG TABLET ONE (18:26)
[2020-06-26] MEDS ORDERED: METHOCARBAMOL 750 MG TABLET PO ONE (18:30)
[2020-06-26] MEDS ORDERED: KETOROLAC 30 MG/1 ML IM ONE (18:30)
--- NOTE | 2020-06-26 18:45 | NUR ---
MEDICATED PT PER EMAR. CALL LIGHT WITHIN REACH.
--- NOTE | 2020-06-26 18:59 | NUR ---
REPORT RECIEVED FROM GOMEZ SANTIAGO
--- NOTE | 2020-06-26 19:40 | NUR ---
TECH AT BEDSIDE FOR SLING PLACEMENT
== END 2020-06-26 20:13 | disposition home or self-care (01) ==
LOC: ED 18:58
DX: M25.511 Pain in right shoulder (principal); M10.9 Gout, unspecified; F17.210 Nicotine dependence, cigarettes, uncomplicated; Z72.9 Problem related to lifestyle, unspecified
CPT/HCPCS: 73030; 93005; 96372; 99283; J1885

== ENCOUNTER 2020-08-06 15:34 | Emergency (ER) | payer MEDICAID ==
[~2020-08-06] VITALS: Ht 177.8 cm; Wt 109.3 kg
[2020-08-06 15:40] VITALS: BP 140/88
--- NOTE | 2020-08-06 15:44 | NUR ---
TASK RN: PT BIB [facility] FROM HOME W CO N/V/D/EPIGASTRIC PAIN X "A COUPLE OF DAYS". PT HAS HX OF HEAVY ETOH USE, DENIES HEMATEMESIS OR MELENA. LAST ETOH LAST NIGHT " I THOUGHT IT WOULD HELP WITH MY NAUSEA". PT RESTLESS, MILD BUE TREMOR NOTED. BP/SPO2 MONITOR IN PLACE. VSS. REPORT TO PRIMARY RNASHU.
[2020-08-06] MEDS ORDERED: FAMOTIDINE 20 MG/2 ML IVPush ONE (16:00)
[2020-08-06] MEDS ORDERED: SODIUM CHLORIDE 0.9% 1,000ML IVBOLUS ONE (16:00)
[2020-08-06] MEDS ORDERED: MAALOX/HYOSCYAMINE/LIDOCAINE 45 ML BTL PO ONE (16:00)
[2020-08-06] MEDS ORDERED: ONDANSETRON 2MG/ML, 2ML IVPush ONE (16:00)
[2020-08-06] MEDS ORDERED: SODIUM CHLORIDE FLUSH 10ML SYR IVF ONE (16:00)
[2020-08-06 16:14] LABS: BASOPHILS % (AUTO) 0 % (0-1); EOSINOPHILS % (AUTO) 1 % (1-7); LYMPHOCYTES % (AUTO) 14 % (22-44); MEAN PLATELET VOLUME 8.1 fL (7.4-10.4); MONOCYTES % (AUTO) 9 % (2-9); NEUTROPHILS % (AUTO) 76 % (42-75); PLATELET COUNT 86 x10^3/uL (130-400); RED BLOOD COUNT 4.93 x10^6/uL (4.38-5.82); RED CELL DISTRIBUTION WIDTH 18.6 % (9.4-14.8)
[2020-08-06 16:15] LABS: MD NO
[2020-08-06] MEDS ORDERED: MAALOX/HYOSCYAMINE/LIDOCAINE 45 ML BTL ONE (16:16)
[2020-08-06] MEDS ORDERED: ONDANSETRON 2MG/ML, 2ML ONE (16:16)
[2020-08-06] MEDS ORDERED: FAMOTIDINE 20 MG/2 ML ONE (16:17)
[2020-08-06 16:25] LABS: ALBUMIN 3.7 g/dL (3.4-5.0); ANION GAP 11 mmol/L (5-15); CALCIUM 8.6 mg/dL (8.5-10.1); CHLORIDE 103 mmol/L (98-107)
[2020-08-06 16:30] LABS: ALANINE AMINOTRANSFERASE 128 U/L (12-78); ALKALINE PHOSPHATASE 171 U/L (45-117); CREATININE 0.84 mg/dL (0.7-1.3); TOTAL PROTEIN 8.1 g/dL (6.4-8.2)
--- NOTE | 2020-08-06 16:35 | NUR ---
US AT BEDSIDE
[2020-08-06] MEDS ORDERED: ONDANSETRON ODT 4 MG ONE (16:39)
[2020-08-06] MEDS ORDERED: FAMOTIDINE 20 MG TABLET ONE (16:39)
[2020-08-06] MEDS ORDERED: ONDANSETRON ODT 8 MG ONE (16:44)
--- NOTE | 2020-08-06 16:51 | NUR ---
MEDICATED PER ORDERS. ENCOURAGED PT TO DRINK FLUIDS
[2020-08-06] MEDS ORDERED: FAMOTIDINE 20 MG TABLET PO ONE (17:00)
[2020-08-06] MEDS ORDERED: ONDANSETRON ODT 8 MG PO ONE (17:00)
--- NOTE | 2020-08-06 18:13 | NUR ---
PT STATES HE FEELS NOT GOOD, TREMULOUS. GIVEN FOOD TRAY.
[2020-08-06] MEDS ORDERED: LORazepam 1MG TABLET ONE (18:17)
[2020-08-06] MEDS ORDERED: LORazepam 1MG TABLET PO ONE (18:30)
--- NOTE | 2020-08-06 18:39 | NUR ---
EDUCATED PT ON [facility]OX [facility]ERS SUCH [facility] OR [facility].
== END 2020-08-06 18:47 | disposition home or self-care (01) ==
LOC: ED 17:08
DX: K29.20 Alcoholic gastritis without bleeding (principal); F10.220 Alcohol dependence with intoxication, uncomplicated; R94.5 Abnormal results of liver function studies; R11.2 Nausea with vomiting, unspecified; R19.7 Diarrhea, unspecified; R10.9 Unspecified abdominal pain; Y90.0 Blood alcohol level of less than 20 mg/100 ml
CPT/HCPCS: 36415; 76700; 80053; 80320; 83690; 85025; 99284; Q0162; G0480

== ENCOUNTER 2020-09-15 03:01 | Emergency (ER) | payer MEDICAID ==
[~2020-09-15] VITALS: Ht 177.8 cm; Wt 110.9 kg
[2020-09-15] MEDS ORDERED: COLCHICINE 0.6 MG CAPSULE PO ONE (03:30)
[2020-09-15] MEDS ORDERED: KETOROLAC 60 MG/2 ML IM ONE (03:30)
[2020-09-15] MEDS ORDERED: COLCHICINE 0.6 MG CAPSULE ONE (03:32)
[2020-09-15] MEDS ORDERED: KETOROLAC 60 MG/2 ML ONE (03:32)
--- NOTE | 2020-09-15 03:40 | NUR ---
PT CAME IN FOR GOUT IN HIS RIGHT FOOT. PT WAS GIVEN TORODAL, CHOLCHINCINE, AND PREDNISONE FOR FLARE UP. D/C INSTRUCTIONS GIVEN, BOTH VERBAL AND WRITTEN, PRESCRIPTIONS WERE ALSO GIVEN AT THIS TIME. PT IS RESTING COMFORTABLY ON GURNEY, WAITING FOR MEDICATIONS TO WORK, THEN WILL AMBULATE OUT ON HIS OWN. PT HAS NO S/S OF DISTRESS
[2020-09-15 03:53] VITALS: BP 148/91
== END 2020-09-15 04:08 | disposition home or self-care (01) ==
LOC: ED 03:33
DX: M10.071 Idiopathic gout, right ankle and foot (principal)
CPT/HCPCS: 96372; 99283; J1885; J7512

== ENCOUNTER 2020-11-05 22:29 | Emergency (ER) | payer MEDICAID ==
[~2020-11-05] VITALS: Ht 177.8 cm; Wt 108.6 kg
--- NOTE | 2020-11-06 00:29 | NUR ---
PT IN [facility] IN [facility]. DR HAINES AT FOR PT HISTORY AND ASSESSMENT.
[2020-11-06] MEDS ORDERED: OMEPRAZOLE 20 MG CAPSULE.DR PO ONE (00:30)
[2020-11-06] MEDS ORDERED: OXYcodone/APAP 5/325MG TABLET PO ONE (00:30)
[2020-11-06] MEDS ORDERED: COLCHICINE 0.6 MG CAPSULE PO ONE (00:30)
[2020-11-06] MEDS ORDERED: KETOROLAC 30 MG/1 ML IM ONE (00:30)
[2020-11-06] MEDS ORDERED: OMEPRAZOLE 20 MG CAPSULE.DR ONE (00:42)
[2020-11-06] MEDS ORDERED: COLCHICINE 0.6 MG CAPSULE ONE (00:43)
[2020-11-06] MEDS ORDERED: KETOROLAC 60 MG/2 ML ONE (00:43)
[2020-11-06] MEDS ORDERED: OXYcodone/APAP 5/325MG TABLET ONE (00:43)
--- NOTE | 2020-11-06 01:01 | NUR ---
patient medicated. discharged with prescriptions and instruction. verbalized understanding.
[2020-11-06 01:02] VITALS: BP 135/79
== END 2020-11-06 01:04 | disposition home or self-care (01) ==
LOC: ED 22:59
DX: M10.071 Idiopathic gout, right ankle and foot (principal)
CPT/HCPCS: 96372; 99284; J1885; J7512

== ENCOUNTER 2020-11-08 07:33 | Emergency (ER) | payer MEDICAID ==
[~2020-11-08] VITALS: Ht 172.7 cm; Wt 110.8 kg
[2020-11-08] MEDS ORDERED: HYDROcodone/APAP 5/325 TABLET PO ONE (08:00)
[2020-11-08] MEDS ORDERED: KETOROLAC 30 MG/1 ML IM ONE (08:00)
[2020-11-08] MEDS ORDERED: HYDROcodone/APAP 5/325 TABLET ONE (08:08)
[2020-11-08] MEDS ORDERED: KETOROLAC 30 MG/1 ML ONE (08:08)
[2020-11-08 08:14] VITALS: BP 126/89
[2020-11-08] MEDS ORDERED: FAMOTIDINE 20 MG TABLET ONE (08:21)
--- NOTE | 2020-11-08 08:25 | NUR ---
PT MEDICATED PER ERP ORDER FOR PAIN TO R FOOT. PT REQUESTING "HEARTBURN" MEDICATION. ERP NOTIFIED, PEPCID GIVEN PER ERP ORDER. VS IMPROVED FROM TRIAGE/UPDATED IN COMPUTER. CALL LIGHT WITHIN REACH.
[2020-11-08] MEDS ORDERED: FAMOTIDINE 20 MG TABLET PO ONE (08:30)
== END 2020-11-08 08:59 | disposition home or self-care (01) ==
LOC: ED 07:57
DX: M13.871 Other specified arthritis, right ankle and foot (principal); M10.071 Idiopathic gout, right ankle and foot
CPT/HCPCS: 96372; 99283; J1885